=== PATIENT | male | born 1960 | race Caucasian/White ===

== ENCOUNTER → 2023-09-20 06:27 | Day surgery (SDC) | payer OTHER, SELFPAY ==
[2023-09-20 16:56] VITALS: BP 119/73
[2023-09-20 17:00] VITALS: BP 129/73
== END ==
LOC: GI 06:27
PROVIDERS: ATTENDING PHYSICIAN Specialist
DX: Z12.11 Encounter for screening for malignant neoplasm of colon (principal); K57.30 Diverticulosis of large intestine without perforation or abscess without bleeding; D12.3 Benign neoplasm of transverse colon; Z86.010 Personal history of colon polyps
CPT/HCPCS: 45385; 45380; 88305

== ENCOUNTER 2023-09-20 17:41 | Observation (INO) | payer OTHER, SELFPAY ==
[2023-09-20] VITALS (16 sets, daily range): BP systolic 76–144; BP diastolic 49–81; PULSE 101–119; BMI 23.0
--- NOTE | 2023-09-20 15:00 | ED.GENMED ---
History of Present Illness
General
Chief Complaint: Rectal Bleeding
Source: patient
Exam Limitations: none
Time Seen by Provider: 09/20/23 14:58
Nursing documentation reviewed up to this point in time: agreed with
Travel History
Have you had any contact with someone who has COVID-19?: No
Do you have any symptoms of coronavirus? Fever > 100 degrees, chills, cough, shortness of breath, sore throat, loss of taste or smell, muscle aches, or headache?: No
History of Present Illness
History of Present Illness:
pt is a 62 y/o M
h/o wilms tumor
hld
had colonosocopy this am [address] corea
had tolerated prep well
went home and ate and around 930 am had 1 episode rectal bleeding
then had 3 more episodes, larger volume
he isn't sure if he had clots
no thinners
takes baby asa but held for colonoscopy
had 2 polyps removed during colonoscopy
has no abdominal pain
syncopized in the waitinr room here
was hypotensive and pale for RN.
Review of Systems
Review of Systems
Allergies reviewed?: Yes
All Other Systems: Not applicable
Phy Exam
Physical Exam
Physical Exam:
GENERAL: Alert ,pale diaphoretic
EYE: pupils equal and reactive
NECK: Supple
ENT: o/p clr, mmm.
CARDIAC: Regular rate and rhythm .
LUNGS: Clear breath sounds bilaterally, no acute respiratory distress, no wheezes/rales/rhonchi
ABDOMEN: Soft, without focal tenderness, no r/g, no cvat, normal bowel sounds
rectal: no active bleeding; evidence of blood in underwear
NEUROLOGICAL: Alert and oriented, no focal neuro deficits
SKIN: Warm and dry, skin intact.
MUSCULOSKELETAL: No edema, well perfused. neg alden's sign
PSYCH: Normal and appropriate interaction.
Course
Orders/Labs/Results
Orders:
Orders
09/20/23 14:55
Electrocardiogram (*1) Urgent
Reason for Study: Syncope
EKG- Treatment ONCE
09/20/23 14:58
Cardiac Monitoring- Treatment ONCE
0.9% Sodium Chloride 1000 ml [Nss] 1,000 ml IV BOLUS
09/20/23 14:59
IV Insert/Care/Rem.- Treatment PRN
09/20/23 15:00
Type+Screen Urgent
Complete Blood Count/With Diff Urgent
Comprehensive Metabolic Panel Urgent
PTT Urgent
Prothrombin Time Urgent
Abnormal Lab Results
09/20/23
15:00
WBC 11.0 H 10^3/uL
(4.8-10.8)
RBC 4.45 L 10^6/uL
(4.70-6.10)
Hct 37.9 L %
(39.0-52.0)
MPV 10.5 H fL
(7.4-10.4)
Absolute Lymphs (auto) 3.9 H 10^3/uL
(1.2-3.4)
Absolute Monos (auto) 0.9 H 10^3/uL
(0.1-0.6)
Sodium 133 L mmol/L
(135-145)
Glucose 132 H mg/dl
(70-99)
09/20/23 15:00
09/20/23 15:00
Vital Signs
Initial and Last Documented VS:
Initial Vital Signs
Temp Pulse Resp
98.6 F 97 18
09/20/23 14:47 09/20/23 14:47 09/20/23 14:47
Last Documented Vital Signs
Temp Pulse Resp BP Pulse Ox
98.6 F 98 17 120/79 99
09/20/23 14:47 09/20/23 15:30 09/20/23 15:30 09/20/23 15:00 09/20/23 15:30
MDM/Problems Addressed
Differential Diagnosis Includes:
GI bleed, syncope, vasovagal
MDM/Problems Addressed:
62 y/o M with colonoscopy today
had polypectomy x 2
started bleeding at 930
x 3 episodes, larger volume the last 2
syncopized in traige x 2
pale, diaphoretic
nontender abdomen
no active bleeding
hg 13
spoke with GI who will take him for scope.
They request that we admit the patient to the hospitalist for monitoring overnight.
*Critical Care Note
Total Time (30-74mins, 75-104mins- exclusive of procedures): Not Applicable
ED Attending Note
-
Portions of this chart may have been created with voice recognition software.� Occasional wrong word or��sound alike� substitutions may have occurred due to the inherent limitations of voice recognition software.
Discharge Plan
Departure
Patient Disposition: Admit
Date of Disposition: 09/20/23
Time of Disposition: 15:45
Admit to: Med/Surg
Presentation/result/management discussed w/ accepting MD/DO: Hospitalist
Condition: Fair
Covid-19: Not Applicable
Discharge Problem:
GI bleed
Prescriptions:
No Action
aspirin 81 mg Tablet,Delayed Release (Dr/Ec)
81 mg PO DAILY
rosuvastatin [Crestor] 10 mg Tablet
10 mg PO QPM
Interventions
Interventions:
*Risk Screen - Suicide Last Done: 09/20/23 14:57
*General Assessment Last Done: 09/20/23 14:47
*Neglect/Abuse Screening Last Done: 09/20/23 14:57
ED- Fall Risk Assessment Last Done: 09/20/23 14:57
*ED COVID-19 Vaccine History Last Done: 09/20/23 14:47
OD-Wlsahs-Hfshxovqgb Assessment Last Done: 09/20/23 14:57
ED- Cardiac Assessment Last Done: 09/20/23 14:57
ED- Pulmonary Assessment Last Done: 09/20/23 14:57
[2023-09-20] MEDS: NSS 1000 IV ×2 (15:01→22:40)
[2023-09-20 15:16] LABS: % Eosinophils 3.4 % (0-6); % Immature Granulocytes 0.3 % (0-0.5); % Lymphocytes 35.5 % (20.5-51.1); % Monocytes 8.1 % (1.7-9.3); % Neutrophils 51.7 % (42.2-75.2); Absolute Basophils 0.1 10^3/uL (0-0.2); Absolute Eosinophils 0.4 10^3/uL (0-0.7); Absolute Lymphocytes 3.9 10^3/uL (1.2-3.4); Absolute Monocytes 0.9 10^3/uL (0.1-0.6); Absolute Neutrophils 5.7 10^3/uL (1.4-6.5); Hematocrit 37.9 % (39.0-52.0); Hemoglobin 13.3 g/dL (13.0-18.0); Mean Corp Hgb Conc. 35.1 g/dL (33.0-37.0); Mean Corpuscular Hgb 29.9 pg (27.0-31.0); Mean Corpuscular Volume 85.2 fL (80.0-94.0); Mean Platelet Volume 10.5 fL (7.4-10.4); Nucleated Red Blood Cells % 0 % (-); Platelet Count 283 10^3/uL (130-400); Red Blood Cell Count 4.45 10^6/uL (4.70-6.10)
[2023-09-20 15:28] LABS: INR 1.02; PT 13.4 Sec (11.4-14.6)
[2023-09-20 15:30] LABS: ALT (SGPT) 32 U/L (0-50); AST (SGOT) 33 U/L (17-59); Albumin 4.2 g/dl (3.5-5.0); Alkaline Phosphatase 58 U/L (38-126); Blood Urea Nitrogen 16 mg/dl (9-20); Carbon Dioxide 25 mmol/L (22-30); Chloride 99 mmol/L (98-107); Glucose 132 mg/dl (70-99); Sodium 133 mmol/L (135-145); Total Bilirubin 0.7 mg/dl (0.2-1.3); Total Protein 6.7 g/dl (6.3-8.2); eGFR > 60.00
--- NOTE | 2023-09-20 15:43 | CON.GI ---
Addendum entered and electronically signed by Cynthia Thompson MD 09/20/23 17:45:
I saw and examined the patient.
The INTEGRATION SOLUTION ARCHITECT's note was reviewed and I agree with the note.
Comment: This is a 62-year-old male who had colonoscopy today with Dr. Corea for prior history of colon polyps ( his prior colonoscopy was about 3 years ago in [place] prior to moving here). He was found to have a 10 mm hepatic flexure polyp that
was removed with a hot snare and 1 diminutive polyp in the proximal transverse colon which was removed with a jumbo cold forceps and sigmoid diverticulosis. He had his procedure around 7:30 AM and after he went home he ate breakfast around 9.30 and
subsequently had a large bloody bowel movement and had 4 more episodes came to the emergency room and in the triage area he had a syncopal episode with another episode of maroon stools. On arrival his hemoglobin is 13.3, he denies any abdominal
pain, no nausea vomiting or hematemesis. No fevers or chills. He denies any NSAID use, he takes 81 mg of aspirin just for prophylactic reasons.
Assessment and plan lower GI bleed most likely post polypectomy bleed will schedule him for urgent colonoscopy for hemostasis. He was dizzy earlier and had a syncopal episode his hemoglobin on admission was stable he is feeling better after
receiving IV fluids. Will continue to monitor serial H&H and BP and transfuse if hemoglobin drops less than 8. Hold aspirin for now.
Addendum entered and electronically signed by LARRY Thayer 09/20/23 16:43:
type and cross sent
transfuse<7
Original Note:
Consultation
-
Date/Time Consultation Requested: 09/20/23 1530
Date/Time Consultation Performed: 09/19/22 1545
Requesting Provider: Keshia Salazar PA-C
Performing Provider: LARRY Pedraza, Cynthia Thompson MD
Reason for Consultation: GI bleed
Medical History
Chief Complaint / HPI
Chief Complaint: GI bleed
History of Present Illness:
Pt is a 62yo with hx colon polyps, hypercholesterolemia, Wilm's tumor with nephrectomy at age 23, mild asthma, Schatzki's ring, gastric and duodenal polyps, hx colon polyps with routine follow up colonoscopy this am with one 10 mm polyp removed from
hepatic flexure and one diminutive polyp in transverse colon, and diverticulosis. After going home ate breakfast at 9-10 AM then noted large volume of red/burgundy stool x 4 episodes then presents to ER with syncope in waiting room and noted
dizziness. On arrival hbg 13.3, WBC 11,000, Na 133 and stable normal.
Pt admits to chronic stable GERD no medication but denies dysphagia, nausea, vomiting, abdominal pain, diarrhea, constipation or black stools. 07/2021 EGD with Schatzki's ring with dilation, gastric polyps, and duodenal polyps noeg metaplasia,
dysplasia, duodenitis. On ASA daily no other NSAID use.
Past Medical History
Past Medical History: Asthma, GERD (no current meds, diet controlled ), Hypercholesterolemia and Other (Wilm's tumor, colon polyps, gastric/duodenal polyps, schatzki's ring)
Past Surgical History: Other (right kidney removal at age 23)
Social History
Tobacco: Non-Smoker
Alcohol: Occasional (social )
Drug: None
Living: With Family
Employment: Employed
Family History
Family History: Other (no family hx colon CA and polyp)
Allergies / Home Medications
Allergy/AdvReac Type Severity Reaction Status Date / Time
No Known Allergies Allergy Unverified 09/20/23 14:55
Medication Instructions Recorded
aspirin 81 mg tablet,delayed 81 mg PO DAILY 09/20/23
release
rosuvastatin 10 mg tablet (Crestor) 10 mg PO QPM 09/20/23
Review of Systems
-
History Source: Patient
Constitutional: Reports Weight Loss
EENT: Reports No Symptoms
Respiratory: Reports No Symptoms
Cardiac: Reports Syncope
Abdomen/GI: Reports Bloody Stools
: Reports No Symptoms
Musculoskeletal: Reports No Symptoms
Skin: Reports No Symptoms
Neurological: Reports Dizzy
Endocrine: Reports No Symptoms
Hematologic/Lymphatic: Reports Bleeding
Vital Signs
Temp Pulse Resp BP Pulse Ox
98.6 F 98 17 120/79 99
09/20/23 14:47 09/20/23 15:30 09/20/23 15:30 09/20/23 15:00 09/20/23 15:30
Physical Exam
Exam
General: Well Developed, Well Nourished and No Apparent Distress
HEENT: Normocephalic and Anicteric
Respiratory: Clear
Cardiac: Regular Rhythm
GI: Soft, Non Tender and Non Distended
Musculoskeletal: No Clubbing and No Cyanosis
Skin: Warm and Dry
Neuro: Awake, Alert and AO x 3
Psych: Calm
Results
WBC 11.0 10^3/uL (4.8-10.8) H 09/20/23 15:00
Hgb 13.3 g/dL (13.0-18.0) 09/20/23 15:00
Hct 37.9 % (39.0-52.0) L 09/20/23 15:00
MCV 85.2 fL (80.0-94.0) 09/20/23 15:00
Plt Count 283 10^3/uL (130-400) 09/20/23 15:00
Absolute Neuts (auto) 5.7 10^3/uL (1.4-6.5) 09/20/23 15:00
PT 13.4 Sec (11.4-14.6) 09/20/23 15:00
INR 1.02 09/20/23 15:00
APTT 29.0 Sec (23.4-35.0) 09/20/23 15:00
Sodium 133 mmol/L (135-145) L 09/20/23 15:00
Potassium 4.0 mmol/L (3.5-5.1) 09/20/23 15:00
Chloride 99 mmol/L (98-107) 09/20/23 15:00
Carbon Dioxide 25 mmol/L (22-30) 09/20/23 15:00
BUN 16 mg/dl (9-20) 09/20/23 15:00
Creatinine 1.0 mg/dL (0.7-1.3) 09/20/23 15:00
Calcium 9.0 mg/dl (8.4-10.2) 09/20/23 15:00
Total Bilirubin 0.7 mg/dl (0.2-1.3) 09/20/23 15:00
AST 33 U/L (17-59) 09/20/23 15:00
ALT 32 U/L (0-50) 09/20/23 15:00
Alkaline Phosphatase 58 U/L (38-126) 09/20/23 15:00
Diagnostic Image Results:
Prior GI Procedures:
EGD: 07/2021 EGD [facility] with Schatzki's ring with dilation, gastric polyps, and duodenal polyps noeg metaplasia, dysplasis, duodenitis.
Colonoscopy: 09/20/23 [facility] one 10 mm polyp removed from hepatic flexure and one diminutive polyp in transverse colon, and diverticulosis.
Assessment / Plan
-
Pt is a 62yo with hx colon polyps, hypercholesterolemia, Wilm's tumor with nephrectomy at age 23, mild asthma, Schatzki's ring, gastric and duodenal polyps, hx colon polyps with routine follow up colonoscopy this am with one 10 mm polyp removed from
hepatic flexure and one diminutive polyp in transverse colon, and diverticulosis. After going home ate breakfast at 9-10 AM then noted large volume of red/burgundy stool x 4 episodes then presents to ER with syncope in waiting room and noted
dizziness. On arrival hbg 13.3, WBC 11,000, Na 133 and stable normal. On ASA daily no other NSAID use.
-post polypectomy bleeding
-syncope
-hx prior adenomatous colon polyps
-mild hyponatremia
other medical problems:
-GERD - stable no meds
-Wilm's tumor with prior nephrectomy
-asthma- stable PRN meds
-Schatzki's ring
-gastric and duodenal polyps
PLAN:
Etiology of bleeding with related to post polypectomy bleeding vs other
plan for colonoscopy today
trend hbg
NPO
will follow closely
-
-
Thank you for consultation and allowing me to participate in the patient's care. Please call the physician relations representative GI physician during the after hours with any questions or concerns.
--- NOTE | 2023-09-20 15:54 | PTCARENOTE ---
Patient had x2 syncopal episodes in the chair in triage. RN and PCT able to move patient over to stretcher. Patient brought right back to bed 8-- Martin GUADARRAMA at bedside.
--- NOTE | 2023-09-20 15:57 | HPS.HSE ---
Family Physician
-
Family Physician:
Chief Complaint
-
hematochezia
History of Present Illness
62M hx gastric duodenal colon polyps, HLD, Wilm's tumor nephrectomy at age 23, mild asthma, Schatzki's ring p/w hematochezia with associate syncope x2 after routine follow up colonoscopy in am with one 10 mm polyp removed from hepatic flexure and
one diminutive polyp in transverse colon.� Large volume red/burgundy stool x 4 episodes at home following procedure, presented to ER with syncope in waiting room associate dizziness. � Vital signs otherwise stable at rest, mild sinus tachycardia but
no hypotension. Labs unremarkable, mild leukocytosis likely stress reactive, no significant anemia noted. Patient was evaluated by GI and had repeat colonoscopy where clips were placed sites of recent polypectomy
Medical History
Past Medical History
Past Medical History: Reports Other (as above)
Past Surgical History: Reports Other (as above)
Social History
Tobacco: Non-smoker
Alcohol: Occasional
Drug: None
Personal:
Living: With Family
Family History
Family History: Not pertinent (reviewed)
Allergies / Home Medications
Allergies reflects when Allergies were last updated in [facility].
Home Medications with original date entered in [facility]
Allergy/Medication List:
Allergies
Allergy/AdvReac Type Severity Reaction Status Date / Time
No Known Allergies Allergy Unverified 09/20/23 14:55
Home Medications
aspirin 81 mg tablet,delayed release 81 mg PO DAILY Blood Clot Prevention/Tx 09/20/23
rosuvastatin 10 mg tablet (Crestor) 10 mg PO QPM High Cholesterol 09/20/23
Review of Systems
-
A 12 point ROS was completed and negative except as noted: Yes
Constitutional: Reports Other (as below)
Physical Exam
Vital Signs
Vital Signs
Temp Pulse Resp BP Pulse Ox
98.6 F 98 17 120/79 99
09/20/23 14:47 09/20/23 15:30 09/20/23 15:30 09/20/23 15:00 09/20/23 15:30
Physical Exam
General: Other (as below)
Laboratory Results
-
09/20/23 15:00
09/20/23 15:00
Laboratory Results
PT 13.4 Sec (11.4-14.6) 09/20/23 15:00
INR 1.02 09/20/23 15:00
APTT 29.0 Sec (23.4-35.0) 09/20/23 15:00
Total Bilirubin 0.7 mg/dl (0.2-1.3) 09/20/23 15:00
AST 33 U/L (17-59) 09/20/23 15:00
ALT 32 U/L (0-50) 09/20/23 15:00
Alkaline Phosphatase 58 U/L (38-126) 09/20/23 15:00
Impression/Plan
-
ROS
General: Denies fever chills night sweats unexpected weight loss
Neuro: Reported syncope Denies seizure shaking dizziness vertigo
Psych: denies depression hallucinations confusion manic episodes
Endocrine: Denies polyuria polydipsia polyphagia heat/cold intolerance
HEENT: Denies blindness visual disturbances epistaxis
Pulmonary: denies coughing hemoptysis sneezing sob dyspnea on exertion
Cardiovascular: denies chest pain palpitations leg swelling
Hematology: denies signs symptoms of anemia easy bruising/bleeding
Gastrointestinal:reported hematochezia
Genito-Urinary: denies retention incontinence dysuria
Musculoskeletal: denies joint pain weakness
Dermatology: denies rash laceration bruising
Physical Exam
General: No pallor, cyanosis, or jaundice.
HEENT: Throat clear. PERRLA Normocephalic atraumatic
NECK: Supple. No JVD Carotid Bruits
RESPIRATORY: Lungs clear to auscultation. No crackles wheezes stridor
CVS: S1, S2 normal. RRR. No murmur, rub or gallop.
ABDOMEN: Soft, non-tender. No distension. BS+/normal.
EXTREMITIES: No peripheral cyanosis or edema.
CRIMINAL INTELLIGENCE ANALYST: AOx3. No focal deficits.
IMPRESSION:
62M hx gastric duodenal colon polyps, HLD, Wilm's tumor nephrectomy at age 23, mild asthma, Schatzki's ring p/w hematochezia with associate syncope x2 after routine follow up colonoscopy in am with one 10 mm polyp removed from hepatic flexure and
one diminutive polyp in transverse colon.� Large volume red/burgundy stool x 4 episodes at home following procedure, presented to ER with syncope in waiting room associate dizziness. � Vital signs otherwise stable at rest, mild sinus tachycardia but
no hypotension. Labs unremarkable, mild leukocytosis likely stress reactive, no significant anemia noted. Patient was evaluated by GI and had repeat colonoscopy where clips were placed sites of recent polypectomy
PLAN:
#Syncope likely due to postpolypectomy bleed status post repeat colonoscopy with clipping
Obs telemetry
Monitor H&H
Transfusion goal Hgb > 8
Check orthostatic vitals in AM
diet as per GI
dvt ppx not indicated at this time, LOS anticipated <24h
I spent a total of 75 minutes with the patient or on the floor. More than 50% of this time involved counseling and coordination of care.
[2023-09-20 18:16] LABS: Hematocrit 32.2 % (39.0-52.0); Hemoglobin 11.1 g/dL (13.0-18.0)
--- NOTE | 2023-09-20 19:14 | SUR.PHASEI ---
tele bed available on 4th floor - report given - transported on monitor to 4th floor, no pain, awake, alert and oriented, nervous and very talkative, questions answered and reassured. Patient in contact with family by cell phone
[2023-09-21 03:43] VITALS: BP 116/79
--- NOTE | 2023-09-21 04:17 | PTCARENOTE ---
Addendum entered by José Nowak RN 09/21/23 04:18:
[employer] service attendant made aware of pt orthostatics 112/73 supine,standing 76/49, sitting-81/63,HR-110. Pt stated he felt dizzy when he stood to do ortho. VIDEO TAPE TRANSFERRER made aware,pt asymptomatic while in bed.Pt encouraged to call for help as needed. Pt started on IV
fluids as ordered NSS at 100ml/hr.No new orders from VIDEO TAPE TRANSFERRER. call quesada in reach.
Original Note:
Pt received from PACU AAOX3 able to make his needs made. Denies pain or any discomfort. Pt oriented to room & call quesada in reach. Plan of care continued.
[2023-09-21 06:52] LABS: % Basophils 0.8 % (0-2); % Eosinophils 2.1 % (0-6); % Immature Granulocytes 0.1 % (0-0.5); % Lymphocytes 23.7 % (20.5-51.1); % Monocytes 7.6 % (1.7-9.3); % Neutrophils 65.7 % (42.2-75.2); Absolute Basophils 0.1 10^3/uL (0-0.2); Absolute Eosinophils 0.2 10^3/uL (0-0.7); Absolute Lymphocytes 1.8 10^3/uL (1.2-3.4); Absolute Monocytes 0.6 10^3/uL (0.1-0.6); Hematocrit 30.8 % (39.0-52.0); Hemoglobin 10.7 g/dL (13.0-18.0); Mean Corp Hgb Conc. 34.7 g/dL (33.0-37.0); Mean Corpuscular Hgb 30.5 pg (27.0-31.0); Mean Corpuscular Volume 87.7 fL (80.0-94.0); Mean Platelet Volume 10.5 fL (7.4-10.4); Nucleated Red Blood Cells % 0 % (-); Platelet Count 189 10^3/uL (130-400); Red Blood Cell Count 3.51 10^6/uL (4.70-6.10); Red Cell Dist. Width 13.2 % (11.5-14.5); White Blood Cell Count 7.7 10^3/uL (4.8-10.8)
--- NOTE | 2023-09-21 07:14 | W.PN.HOSP.TC ---
Today's Communication/Plan
-
discharge
Assessment / Plan
Assessment / Plan
Physical Exam
General: No pallor, cyanosis, or jaundice.
HEENT: Throat clear. PERRLA Normocephalic atraumatic
NECK: Supple. No JVD Carotid Bruits
RESPIRATORY: Lungs clear to auscultation. No crackles wheezes stridor
CVS: S1, S2 normal. RRR.� No murmur, rub or gallop.
ABDOMEN: Soft, non-tender. No distension. BS+/normal.
EXTREMITIES: No peripheral cyanosis or edema.
NURSING HOME ASSISTANT: AOx3. No focal deficits.
IMPRESSION:
62M hx gastric duodenal colon polyps, HLD, Wilm's tumor nephrectomy at age 23, mild asthma, Schatzki's ring p/w hematochezia with associate syncope x2 after routine follow up colonoscopy in am with one 10 mm polyp removed from hepatic flexure and
one diminutive polyp in transverse colon.� Large volume red/burgundy stool x 4 episodes at home following procedure, presented to ER with syncope in waiting room associate dizziness. � Vital signs otherwise stable at rest, mild sinus tachycardia but
no hypotension.� Labs unremarkable, mild leukocytosis likely stress reactive, no significant anemia noted.� Patient was evaluated by GI and had repeat colonoscopy where clips were placed sites of recent polypectomy
PLAN:
#Syncope likely due to postpolypectomy bleed status post repeat colonoscopy with clipping
Obs telemetry
Monitor H&H, slight trend down, no significant bleeding noted, VSS
Significant orthostatic hypotension in morning, though asymptomatic, possibly d/t lingering anesthesia effects vs hypovolemia from GI bleed
Orthostatic Hypotension resolved with IVF resuscitation
Tolerating low residue diet
GI eval appreciated stable for discharge home
dvt ppx not indicated at this time, LOS anticipated <24h
Medically stable for discharge home with outpatient follow up recommendations.
Total Time Preparing Discharge ____45___ minutes including examination of the patient, summary of the hospital stay, instructions for continuing care to all relevant caregivers; and preparation of discharge records, prescriptions, and referral
forms if necessary.
Anticipated Discharge: Today
Subjective/Interval History
-
Date of Service: September 21, 2023
Seen and examined at bedside in no acute distress resting comfortably in bed. Patient had significant orthostatic hypotension earlier in the morning, asymptomatic. Denies lightheadedness. Has not had a bowel movement today but no further rectal
bleeding noted. Orthostatic hypotension resolved later in day with IVF resuscitation. Ambulating without issues. Eager to go home.
Objective Data
-
Labs:
Laboratory Results
09/21/23
06:32
WBC 7.7
Hgb 10.7 L
Hct 30.8 L
Plt Count 189 D
Sodium Pending
Potassium Pending
Chloride Pending
Carbon Dioxide Pending
BUN Pending
Creatinine Pending
Glucose Pending
Calcium Pending
Vital Signs:
Vital Signs
Temp Pulse Resp BP Pulse Ox
97.9 F 96 18 116/79 95
09/21/23 03:43 09/21/23 03:43 09/21/23 03:43 09/21/23 03:43 09/21/23 03:43
I&O
09/20/23 09/21/23 09/22/23
06:59 06:59 06:59
Intake Total 350 / 350
Output Total 1210 / 1210
Balance -860 / -860
[2023-09-21 07:18] LABS: Blood Urea Nitrogen 10 mg/dl (9-20); Calcium 8.2 mg/dl (8.4-10.2); Carbon Dioxide 22 mmol/L (22-30); Chloride 107 mmol/L (98-107); Estimated Creatinine Clearance 115 ml/min; Glucose 100 mg/dl (70-99); Potassium 4.3 mmol/L (3.5-5.1); Sodium 132 mmol/L (135-145); eGFR > 60.00
[2023-09-21] MEDS: NSS 500 IV (07:24)
[2023-09-21 07:35] VITALS: BP 115/75; BP 134/71; BP 137/74; PULSE 102; PULSE 118; PULSE 93
[2023-09-21] MEDS: NSS 1000 IV (08:12)
[2023-09-21 11:02] VITALS: BP 105/76; BP 109/70; BP 119/79; PULSE 111; PULSE 94; PULSE 99
[2023-09-21] MEDS: CALCIUM GLUCONATE 100 IV (11:10)
--- NOTE | 2023-09-21 12:00 | W.PN.GI.CBS2 ---
Addendum entered and electronically signed by David Forde MD 09/21/23 14:18:
I saw and examined the patient.
The PA's note was reviewed and I agree with the note.
Comment:
No bleeding o/n, Hgb drifted down to 10.7 but no clinical sign of bleeding. Agree with advancing diet, ok to d/c home, GI s/o.
Original Note:
Today's Communication / Plan
-
Etiology of bleeding with related to post polypectomy bleeding
s/p repeat colonoscopy 09/19 with bleeding at polyps sites with clip placed
hbg with slow drop 13.3 to 10.7
no stools overnight
reviewed first few stools may have blood
advance to low residue diet
ok for discharge if no further bleeding and no dizziness
advised to return for any recurrent bleeding or problems
report reviewed with patient
all questions answered
Assessment / Plan
-
Pt is a 62yo with hx colon polyps, hypercholesterolemia, Wilm's tumor with nephrectomy at age 23, mild asthma, Schatzki's ring, gastric and duodenal polyps, hx colon polyps with routine follow up colonoscopy this am with one 10 mm polyp removed from
hepatic flexure and one diminutive polyp in transverse colon, and diverticulosis� After going home ate breakfast at 9-10 AM then noted large volume of red/burgundy stool x 4 episodes then presents to ER with syncope in waiting room and noted
dizziness. � On arrival� hbg 13.3, WBC 11,000, Na 133 and stable normal. On ASA daily no other NSAID use.
3/7 colonoscopy [facility] with one 10 mm polyp removed from hepatic flexure and one diminutive polyp in transverse colon, and diverticulosis
3/7 colonoscopy [place]-� � - Diverticulosis in the sigmoid colon and in the descending colon.
�� � � � � � � � � � � - Blood in the entire examined colon� - A single (solitary) ulcer at the hepatic flexure site of recent polypectomy ( Hot snare polypectomy). 2
�� � � � � � � � � � � Clips were placed. Clip dust collector attendant: [employer]. Injected. No bleeding after intervention.
�� � � � � � � � � � � Erythematous mucosa with red spot was found in theproximal transverse colon at site of recent
�� � � � � � � � � � � polypectomy (jumbo forceps). Clip was placed. Clip
�� � � � � � � � � � � dust collector attendant: [employer].
�� � � � � � � � � � � - No specimens collected.
-post polypectomy bleeding
-syncope
-hx prior adenomatous colon polyps
-mild hyponatremia
other medical problems:
-GERD - stable no meds
-Wilm's tumor with prior nephrectomy
-asthma- stable PRN meds
-Schatzki's ring
-gastric and duodenal polyps
PLAN:
Etiology of bleeding with related to post polypectomy bleeding
s/p repeat colonoscopy 09/19 with bleeding at polyps sites with clip placed
hbg with slow drop 13.3 to 10.7
no stools overnight
reviewed first few stools may have blood
advance to low residue diet
ok for discharge if no further bleeding and no dizziness
advised to return for any recurrent bleeding or problems
report reviewed with patient
all questions answered
Subjective
Subjective
Date of Service: September 21, 2023
no further bleeding, feeling well advancing to low residue diet
Objective
Data Reviewed
Laboratory Data:
Laboratory Results
09/21/23 06:32
09/21/23 06:32
Laboratory Results
PT 13.4 Sec (11.4-14.6) 09/20/23 15:00
INR 1.02 09/20/23 15:00
APTT 29.0 Sec (23.4-35.0) 09/20/23 15:00
Total Bilirubin 0.7 mg/dl (0.2-1.3) 09/20/23 15:00
AST 33 U/L (17-59) 09/20/23 15:00
ALT 32 U/L (0-50) 09/20/23 15:00
Alkaline Phosphatase 58 U/L (38-126) 09/20/23 15:00
Vital Signs and I&O:
Vital Signs
Temp Pulse Resp BP Pulse Ox
98.0 F 94 18 119/79 96
09/21/23 11:02 09/21/23 11:02 09/21/23 11:02 09/21/23 11:02 09/21/23 11:02
I&O
09/20/23 09/21/23 09/22/23
06:59 06:59 06:59
Intake Total 350 / 350
Output Total 1210 / 1210
Balance -860 / -860
Physical Exam
Physical Exam
HEENT: Anicteric and Moist mucous membranes
Cardiology: Normal Sinus Rhythm
Pulmonary: Clear
GI: Soft, Non Distended and Non Tender
Extremities: No Edema
Neuro: Non Focal
[2023-09-21 15:16] VITALS: BP 128/83
--- NOTE | 2023-09-21 16:03 | CM ---
Alert awake oriented patient who lives with his spouse Rasta who lives in a 2 story home with 0 step to enter and bed and bathroom on first floor. He is independent in driving and in all activities of daily living.He was offered Vn he declined
need.Rasta can drive him home at ct. He is anxious for discharge.Observation letter explained . Pt did not sign letter. Letter on chart.
No VN hx / No SNF history
Pharmacy [facility]
PCP DR Jessica
PLAN Home Declined VN
--- NOTE | 2023-09-21 16:08 | W.DCSUMMARY ---
Discharge Summary
Discharge Data
Date of Admission: 09/20/23
Date of Discharge: 09/21/23
-
Pending Results: No
Hospital Course
62M hx gastric duodenal colon polyps, HLD, Wilm's tumor nephrectomy at age 23, mild asthma, Schatzki's ring p/w hematochezia with associate syncope x2 after routine follow up colonoscopy in am with one 10 mm polyp removed from hepatic flexure and
one diminutive polyp in transverse colon.� Large volume red/burgundy stool x 4 episodes at home following procedure, presented to ER with syncope in waiting room associate dizziness. � Vital signs otherwise stable at rest, mild sinus tachycardia but
no hypotension.� Labs unremarkable, mild leukocytosis likely stress reactive, no significant anemia noted.� Patient was evaluated by GI and had repeat colonoscopy where clips were placed sites of recent polypectomy. Syncope likely due to
postpolypectomy bleed status post repeat colonoscopy with clipping. Initially significant orthostatic hypotension was noted in morning, though asymptomatic, possibly d/t lingering anesthesia effects vs hypovolemia from GI bleed. Orthostatic
Hypotension resolved with IVF resuscitation. Tolerating low residue diet. GI evaluated and assessed stable for discharge home. Medically stable, patient was discharged home with outpatient follow up recommendations.
Discharge Plan
-
Patient Disposition: Home (Routine Discharge)
Discharge Diagnosis/Procedures: 09/19 colonoscopy with one 10 mm polyp removed from hepatic flexure and one diminutive polyp in transverse colon, and diverticulosis, polypectomy complicated with bleeding and associate syncope. Repeat colonoscopy
performed with clips placed at bleeding sites, Orthostatic Hypotension resolved, Mild Anemia, Mild Hypocalcemia
Condition: Good
Diet: Low Residue
Additional Diets: ok to advance diet as tolerated
Activity: As tolerated
Driving Restrictions: As prior to admission
Bathing Restrictions: None
Blood Work: please repeat cbc and BMP with primary care provider in 1 week of discharge.
Activity Restrictions/Additional Instructions:
Please follow up with primary care provider in 1 week of discharge and GI in 2-4 weeks of discharge.
Referrals:
Juan Pablo Gasca MD [Active] - in two to four weeks
UNKNOWN - PT NOT,INTERVIEWE [Family Provider] -
Prescriptions:
Continued
aspirin 81 mg Tablet,Delayed Release (Dr/Ec)
81 mg PO DAILY
rosuvastatin [Crestor] 10 mg Tablet
10 mg PO QPM
Discharge Orders:
Discharge Patient (As Directed); Ordered 09/21/23
Ordered By: Seun Monge
Discharge Date and Time
Discharge Date/Time: 09/21/23 18:04
== END 2023-09-21 18:04 | disposition home or self-care (01) ==
LOC: 4 EAST ACU 17:41
PROVIDERS: Physician Assistant; ADMITTING PHYSICIAN Internal Medicine; EMERGENCY PHYSICIAN Emergency Medicine; OTHER PHYSICIAN Internal Medicine Gastroenterology
DX: K91.840 Postprocedural hemorrhage of a digestive system organ or structure following a digestive system procedure (principal); K63.3 Ulcer of intestine; K57.30 Diverticulosis of large intestine without perforation or abscess without bleeding; K63.89 Other specified diseases of intestine; D64.9 Anemia, unspecified; E83.51 Hypocalcemia; Y84.8 Other medical procedures as the cause of abnormal reaction of the patient, or of later complication, without mention of misadventure at the time of the procedure; I95.1 Orthostatic hypotension; R55 Syncope and collapse; E78.00 Pure hypercholesterolemia, unspecified; J45.909 Unspecified asthma, uncomplicated; K21.9 Gastro-esophageal reflux disease without esophagitis; E87.1 Hypo-osmolality and hyponatremia; Z79.82 Long term (current) use of aspirin; Z79.899 Other long term (current) drug therapy; Z85.528 Personal history of other malignant neoplasm of kidney; Z86.010 Personal history of colon polyps; Z87.19 Personal history of other diseases of the digestive system; Z90.5 Acquired absence of kidney
CPT/HCPCS: 45382; 80048; 80053; 85014; 85018; 85025; 85610; 85730; 86850; 86900; 86901; 93005; 96360; 99285; G0378

== ENCOUNTER 2024-02-28 23:21 | Observation (INO) | payer OTHER, SELFPAY ==
[2024-02-28 21:27] VITALS: BP 133/86; BMI 23.4
[2024-02-28 21:32] VITALS: BP 133/86
[2024-02-28 21:43] LABS: % Eosinophils 2.7 % (0-6); % Immature Granulocytes 0.2 % (0-0.5); % Lymphocytes 38.3 % (20.5-51.1); % Monocytes 7.2 % (1.7-9.3); % Neutrophils 50.6 % (42.2-75.2); Absolute Basophils 0.1 10^3/uL (0-0.2); Absolute Eosinophils 0.3 10^3/uL (0-0.7); Absolute Lymphocytes 3.6 10^3/uL (1.2-3.4); Absolute Monocytes 0.7 10^3/uL (0.1-0.6); Absolute Neutrophils 4.8 10^3/uL (1.4-6.5); Hematocrit 39.2 % (39.0-52.0); Hemoglobin 13.3 g/dL (13.0-18.0); Mean Corp Hgb Conc. 33.9 g/dL (33.0-37.0); Mean Corpuscular Hgb 29.4 pg (27.0-31.0); Mean Corpuscular Volume 86.7 fL (80.0-94.0); Nucleated Red Blood Cells % 0 % (-); Platelet Count 245 10^3/uL (130-400); Red Blood Cell Count 4.52 10^6/uL (4.70-6.10); Red Cell Dist. Width 14.6 % (11.5-14.5); White Blood Cell Count 9.4 10^3/uL (4.8-10.8)
[2024-02-28 21:57] VITALS: BP 133/77; BP 138/77; BP 138/79; PULSE 90; PULSE 93; PULSE 97
[2024-02-28 22:00] VITALS: BP 138/76
[2024-02-28 22:02] LABS: ALT (SGPT) 31 U/L (0-50); AST (SGOT) 40 U/L (17-59); Albumin 4.4 g/dl (3.5-5.0); Alkaline Phosphatase 56 U/L (38-126); Blood Urea Nitrogen 18 mg/dl (9-20); Calcium 8.9 mg/dl (8.4-10.2); Carbon Dioxide 29 mmol/L (22-30); Chloride 94 mmol/L (98-107); Estimated Creatinine Clearance 83 ml/min; Glucose 165 mg/dl (70-99); Potassium 4.2 mmol/L (3.5-5.1); Sodium 130 mmol/L (135-145); Total Bilirubin 0.7 mg/dl (0.2-1.3); Total Protein 6.7 g/dl (6.3-8.2); eGFR > 60.00
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
[2024-02-28 22:06] LABS: Troponin I 0.019 ng/ml
[2024-02-28 23:00] VITALS: BP 136/80
--- NOTE | 2024-02-28 23:34 | HPS.HSE ---
Family Physician
-
Family Physician: NOT KNOW UNKNOWN - PT DOES
Chief Complaint
-
syncope
History of Present Illness
63-year-old male past medical history of hyperlipidemia, Wilms tumor status post nephrectomy, mild asthma, Schatzki's ring presenting with multiple syncopal episodes while at dinner tonight. He was sitting across the table eating dinner when he
started to feel lightheaded. His friend who he was eating dinner with states that immediately after he lost consciousness and proceeded to fall to the left. Patient denies any preceding chest pain, shortness of breath or dizziness. He did strike
the left side of his head patient's friend states that it was not a hard impact as the chair somewhat caught the fall. Patient quickly regained consciousness and did have 2 additional syncopal episode immediately following. He then was able to sit
up in a chapin at the restaurant and felt better. 911 was called and patient transferred to the emergency room.
He was able to walk to the ambulance without any difficulty. Patient is asymptomatic at this time. Denies any headache, neck pain, back pain. He denies any chest pain, shortness of breath, dizziness or visual changes. He denies any nausea
vomiting or abdominal pain. Patient walks his dog daily and denies any recent exertional chest pain or shortness of breath.
Patient did start Lexapro 3 days ago.
Father at age 69 from heart attack.
He drinks 1-2 drinks of wine occasionally. Denies smoking or any drugs.
Medical History
Past Medical History
Past Medical History: Reports Other (hyperlipidemia, Wilms tumor status post nephrectomy, mild asthma, Schatzki's ring )
Past Surgical History: Reports None
Social History
Tobacco: Non-smoker
Alcohol: Occasional
Drug: None
Family History
Family History: Not pertinent
Allergies / Home Medications
Allergies reflects when Allergies were last updated in [employer].
Home Medications with original date entered in [employer]
Allergy/Medication List:
Allergies
Allergy/AdvReac Type Severity Reaction Status Date / Time
No Known Allergies Allergy Unverified 09/20/23 14:55
Home Medications
aspirin 81 mg tablet,delayed release 81 mg PO DAILY Blood Clot Prevention/Tx 09/20/23
rosuvastatin 10 mg tablet (Crestor) 10 mg PO QPM High Cholesterol 09/20/23
Review of Systems
-
History Source: Patient
A 12 point ROS was completed and negative except as noted: Yes
Constitutional: Reports See HPI
EENT: Reports No Symptoms
Respiratory: Reports No Symptoms
Cardiac: Reports No Symptoms
Abdomen/GI: Reports No Symptoms
: Reports No Symptoms
Musculoskeletal: Reports No Symptoms
Skin: Reports No Symptoms
Neurological: Reports No Symptoms
Endocrine: Reports No Symptoms
Hematologic/Lymphatic: Reports No Symptoms
Psych: Reports No Symptoms
Physical Exam
Vital Signs
Vital Signs
Temp Pulse Resp BP Pulse Ox
98.1 F 87 20 136/80 98
02/28/24 21:27 02/28/24 23:15 02/28/24 23:00 02/28/24 23:00 02/28/24 21:27
Physical Exam
General: Well Developed, Well Nourished and No Apparent Distress
HEENT: NormoCephalic, Moist mucous membranes and Atraumatic
Respiratory: Clear
Cardiac: S1/S2 and Regular Rhythm; No Murmur or Rub
GI: Soft, Non Tender, Non Distended and Normal Bowel Sounds; No Organomegaly
Rectal: Deferred by Provider
Musculoskeletal: No Clubbing, No Cyanosis and No Edema
Skin: No Rash
Neuro: Nonfocal/grossly intact
Laboratory Results
-
02/28/24 21:32
02/28/24 21:32
Laboratory Results
Total Bilirubin 0.7 mg/dl (0.2-1.3) 02/28/24 21:32
AST 40 U/L (17-59) 02/28/24 21:32
ALT 31 U/L (0-50) 02/28/24 21:32
Alkaline Phosphatase 56 U/L (38-126) 02/28/24 21:32
Troponin I 0.019 ng/ml 02/28/24 21:32
Data Reviewed
-
Lab Data: Labs Reviewed by me
Old Records: Reviewed
Impression/Plan
-
IMPRESSION:
PLAN:
# Multiple syncopal episodes concerning for arrhythmia
-EKG shows normal sinus rhythm
-Orthostatics negative
-Telemetry monitoring
-Troponin of 0.09, continue to trend
-Check echo
-Check CT head due to head injury
-continue prophylactic aspirin
-Cardiology consulted
Hyperlipidemia
-Continue statin
Wilms tumor status post right nephrectomy
Mild asthma
Schatzki's ring
Anxiety/Depression
-continue SSRI
Full code
DVT prophylaxis�SCDs
Regular diet
[2024-02-29] VITALS (7 sets, daily range): BP systolic 115–151; BP diastolic 76–94; PULSE 87–105; O2SAT 96; BMI 23.8
[2024-02-29 00:33] LABS: TSH Reflex To Free T4 4.03 uIU/ml (0.47-4.68)
[2024-02-29 07:38] LABS: % Basophils 0.7 % (0-2); % Eosinophils 0.7 % (0-6); % Immature Granulocytes 0.2 % (0-0.5); % Lymphocytes 17.7 % (20.5-51.1); % Monocytes 6.9 % (1.7-9.3); % Neutrophils 73.8 % (42.2-75.2); Absolute Basophils 0.1 10^3/uL (0-0.2); Absolute Eosinophils 0.1 10^3/uL (0-0.7); Absolute Lymphocytes 1.5 10^3/uL (1.2-3.4); Absolute Monocytes 0.6 10^3/uL (0.1-0.6); Absolute Neutrophils 6.4 10^3/uL (1.4-6.5); Hematocrit 38.6 % (39.0-52.0); Hemoglobin 13.4 g/dL (13.0-18.0); Mean Corp Hgb Conc. 34.7 g/dL (33.0-37.0); Mean Corpuscular Hgb 28.9 pg (27.0-31.0); Mean Corpuscular Volume 83.4 fL (80.0-94.0); Mean Platelet Volume 10.5 fL (7.4-10.4); Nucleated Red Blood Cells % 0 % (-); Platelet Count 219 10^3/uL (130-400); Red Blood Cell Count 4.63 10^6/uL (4.70-6.10); Red Cell Dist. Width 14.9 % (11.5-14.5); White Blood Cell Count 8.7 10^3/uL (4.8-10.8)
[2024-02-29 08:00] LABS: Troponin I < 0.012 ng/ml
[2024-02-29] MEDS: ASPIR LOW (ENTERIC COATED) 81 MG PO (08:00)
[2024-02-29 08:09] LABS: ALT (SGPT) 33 U/L (0-50); AST (SGOT) 37 U/L (17-59); Albumin 4.6 g/dl (3.5-5.0); Alkaline Phosphatase 68 U/L (38-126); Blood Urea Nitrogen 13 mg/dl (9-20); Calcium 9.4 mg/dl (8.4-10.2); Carbon Dioxide 25 mmol/L (22-30); Chloride 101 mmol/L (98-107); Estimated Creatinine Clearance 102 ml/min; Glucose 115 mg/dl (70-99); Potassium 4.5 mmol/L (3.5-5.1); Sodium 135 mmol/L (135-145); Total Bilirubin 0.7 mg/dl (0.2-1.3); Total Protein 7.1 g/dl (6.3-8.2); eGFR > 60.00
--- NOTE | 2024-02-29 08:18 | CON.CAR ---
Addendum entered and electronically signed by Dontae Kamara MD 02/29/24 16:17:
Attending addendum: Patient seen and examined. PA note reviewed and findings independently confirmed by me. Briefly, this is a 64-year-old gentleman with a past medical history notable for anxiety/depression, asthma, hyperlipidemia, and right
nephrectomy secondary to a Wilms tumor many years ago. He presented to [facility] after an unexplained syncopal episode while out to dinner. The patient reports that he had been feeling well earlier in the day. He had talked to his
sister which is always anxiety provoking. While eating dinner he suddenly began feeling lightheaded then experienced a loss of consciousness falling over and hitting his head. He was apparently helped to a chapin and experienced additional episodes
of syncope. 911 was called. The patient reports no prodrome and no memory of the episodes. He denies any postictal state and reports that he was immediately awake alert after the episode. There was no confusion. He had been sitting the entire
time and had not change position. He denies any palpitations before or after the episode.
Family history: Mother 5 in her late 80s. His father of a heart attack in his late 60s. He has 2 younger sisters who are alive and without cardiac issues. He states that there is no extended family history of sudden in aunts, uncles,
or cousins.
Social history: Patient reports that he has been under a significant amount of stress. His sister is getting evicted from her home and is the primary remote coders for their dependent mother. He denies any tobacco history. Social alcohol use
Allergies: None
-02/29/2024: Echo: LV: Mild concentric LVH. EF 58%. No WMA. RV: Normal, LA: Normal, RA: Normal, MV: Mild MR, AV: No AI or AAS, TV: Mild TR with estimated PAP 20-25 mmHg
-03/09/2024: EKG: Sinus rhythm with no acute ST-T changes
-Blood work: Troponin undetectable less than 0.012 x 2, BUN/creatinine 13/0.9, H/H: 13.4/38.6, Plts: 219, AST/ALT: 37/33,
PE:
GEN: AAO x 3. No acute distress
HEENT: NC/AT, sclera are anicteric, hearing and nares are normal.
NECK: Supple. Normal JVP
LUNGS: Clear to bases bilaterally. No wheezing
CV: Regular rate and rhythm. Normal S1/S2. Murmur: None
ABD : Soft, NT, Bowel sounds are present. No hepatosplenomegaly
EXT: No CCE. Good distal pulses
NEURO: No focal neurologic deficits
IMPRESSION
-Unexplained syncope with no prodrome
RECOMMENDATION
-Continue aspirin
-Will place RhythmStar monitor for continuous monitoring x 2 weeks
-Will schedule outpatient ischemic evaluation with stress study in 2 weeks after monitor removed. My suspicion for ischemic etiology is low as he experienced no anginal symptoms and the event happened while at rest with no exertional component.
-He will be scheduled for followup in our office
-I was absolutely clear on multiple occasions that the patient CAN NOT DRIVE until etiology of event has been evaluated. I was clear with patient and Dr. Bob stated he will make these instructions clear on his discharge sheet
-Discontinue Levitra and /or Lexapro
-Further management will in part be based upon the result of these studies
Original Note:
Consultation
Consultation Request
Date/Time Consultation Requested: 02/29/2024
Date/Time Consultation Performed: 02/29/2024
Requesting Provider: Dr. Bob
Performing Provider: Dr. Kamara
Reason for Consultation: Syncope
Medical History
-
History of Present Illness:
HPI: Stiven is a 63-year-old male with past medical history of Wilms tumor status post right nephrectomy, hyperlipidemia, asthma, anxiety, and Schatzki's ring. He presents to ER for evaluation of multiple episodes of syncope yesterday while out
to dinner. While eating dinner, he suddenly began to feel lightheaded. He then lost consciousness and fell over, hitting his head. He was apparently helped up and into a chapin at the restaurant when he again had 2 additional episodes of syncope
which were witnessed. 911 was called and he was transferred to the emergency room for further evaluation. Upon arrival, workup has been unremarkable with negative troponins x 2. His TSH is stable at 4.03. Electrolytes within normal limits. Head
CT negative for any acute intracranial abnormality. EKG reviewed and showed sinus rhythm with heart rate 95 bpm. No arrhythmias noted on telemetry. He reports he is feeling with this morning and is hopeful for discharge. He has had no recurrent
symptoms. He denies any prior history of syncope or lightheadedness. His blood pressures are stable and his orthostatic vital signs were negative.
PMH:
Wilms tumor s/p R nephrectomy
HLD
Asthma
Anxiety
Schatzki's ring
Past Medical History
Past Medical History: Other (In HPI)
Social History
Tobacco: Non-Smoker
Alcohol: Occasional
Drug: None
Personal:
Living: With Family
Employment: Employed
Family History
Family History: Reviewed & Not Pertinent
Allergies / Home Medications
Allergy/AdvReac Type Severity Reaction Status Date / Time
No Known Allergies Allergy Unverified 09/20/23 14:55
�Medication �Instructions �Recorded �Confirmed �Type
aspirin 81 mg tablet,delayed 81 mg PO DAILY Blood Clot 09/20/23 02/28/24 History
release Prevention/Tx
rosuvastatin 10 mg tablet (Crestor) 10 mg PO DAILY High Cholesterol 09/20/23 02/28/24 History
Review of Systems
-
History Source: Patient
All other systems: Negative unless noted
Physical Exam
Vital Signs
Temp Pulse Resp BP Pulse Ox
98.1 F 90 18 147/84 95
02/29/24 07:56 02/29/24 07:56 02/29/24 07:56 02/29/24 07:56 02/29/24 07:56
Lab Results
02/29/24 07:22
02/29/24 07:22
Troponin I < 0.012 ng/ml 02/29/24 07:22
Physical Exam
General: Well Developed, Well Nourished and No Apparent Distress
HEENT: Normocephalic, Anicteric and Moist Mucous Membranes
Respiratory: Clear and Non Labored Respirations
Cardiac: S1/S2 and Regular Rhythm
Musculoskeletal: No Clubbing, No Cyanosis and No Edema
Skin: Warm and Dry
Neuro: AO x 3 and Nonfocal/Grossly Intact
Psych: Calm
Impression / Plan
-
PCP: Dr. Swartz
Gear Design Engineer: None prior to arrival
Impression:
Presented with syncope
Wilms tumor s/p R nephrectomy
HLD
Asthma
Anxiety
Schatzki's ring
Echo 02/29/2024: EF 58%, aortic sclerosis without stenosis
Plan:
-Presented after having multiple episodes of syncope while out to dinner. Did feel lightheaded prior to episode, however came on suddenly.
-Denies any prior history of lightheadedness or syncope/near syncope.
-No arrhythmias noted on telemetry overnight. EKG reviewed. Sinus rhythm with heart rate 95 bpm.
-Discussed outpatient monitoring. Patient is hesitant, however is agreeable to 2 week rhythm star monitor. Will apply at discharge.
-Echo with preserved EF and no significant valvular disease.
-TSH within normal limits. Electrolytes stable.
-Troponin negative x 2. Denies any chest pain or shortness of breath.
-Orthostatic vital signs negative.
-CT of head negative for any acute intracranial abnormality.
-Arranging for OP stress testing.
-Continue aspirin 81 mg daily and Crestor 10 mg daily.
HPI: Stiven is a 63-year-old male with past medical history of Wilms tumor status post right nephrectomy, hyperlipidemia, asthma, anxiety, and Schatzki's ring. He presents to ER for evaluation of multiple episodes of syncope yesterday while out
to dinner. While eating dinner, he suddenly began to feel lightheaded. He then lost consciousness and fell over, hitting his head. He was apparently helped up and into a chapin at the restaurant when he again had 2 additional episodes of syncope
which were witnessed. 911 was called and he was transferred to the emergency room for further evaluation. Upon arrival, workup has been unremarkable with negative troponins x 2. His TSH is stable at 4.03. Electrolytes within normal limits. Head
CT negative for any acute intracranial abnormality. EKG reviewed and showed sinus rhythm with heart rate 95 bpm. No arrhythmias noted on telemetry. He reports he is feeling with this morning and is hopeful for discharge. He has had no recurrent
symptoms. He denies any prior history of syncope or lightheadedness. His blood pressures are stable and his orthostatic vital signs were negative.
Data Reviewed
-
EKG: Tracing Personally Visualized and interpreted
CT Scan: Report Reviewed by me
Labs: Labs Reviewed by me
Old Records: Reviewed
[2024-02-29 08:59] LABS: Hepatitis C Antibody Negative (Negative)
--- NOTE | 2024-02-29 09:06 | W.PN.HOSP.TC ---
Today's Communication/Plan
-
see outlined plan
if Echo ok, and no further IP testing planned, then DC to home pending cardiac recs/clearance.
Assessment / Plan
Assessment / Plan
Assessment:
Multiple syncopal episodes concerning for arrhythmia/cardiac etiology
- no historical features of seizure or vagal etiology. no prior issues with glycemia.
- EKG NSR
- Tele no events
- Echo pending
- May need OP cardiac monitoring
- stress echo 18 months ago was normal
- await [facility] cards eval
Head trauma with syncope
- CT head negative, neuro exam non-focal
Hyperlipidemia
- continue statin
Wilms tumor status post right nephrectomy
Mild asthma
Schatzki's ring
Hyponatremia
- resolved
Anxiety/Depression
- hold Lexapro - he plans to stop it.
DVT ppx: SCDs
Code: Full
Anticipated Discharge: Within 24 hours
Subjective/Interval History
-
Date of Service: February 29, 2024
no complaints at present
in NSR on tele
Objective Data
-
Labs:
Laboratory Results
02/28/24 02/29/24
21:32 07:22
WBC 9.4 8.7
Hgb 13.3 13.4
Hct 39.2 38.6 L
Plt Count 245 219
Sodium 130 L 135
Potassium 4.2 4.5
Chloride 94 L 101
Carbon Dioxide 29 25
BUN 18 13
Creatinine 1.1 0.9
Glucose 165 H 115 H
Calcium 8.9 9.4
Total Bilirubin 0.7 0.7
AST 40 37
ALT 31 33
Alkaline Phosphatase 56 68
Vital Signs:
Vital Signs
Temp Pulse Resp BP Pulse Ox
98.1 F 90 18 147/84 95
02/29/24 07:56 02/29/24 07:56 02/29/24 07:56 02/29/24 07:56 02/29/24 07:56
I&O
02/28/24 02/29/24 03/01/24
06:59 06:59 06:59
Intake Total 0 / 0
Balance 0 / 0
Physical Exam
-
General: No Apparent Distress
HEENT: Normocephalic and Atraumatic
Respiratory: Negative Wheezes or Rales
Cardiac: Regular Rhythm and S1/S2
GI: Soft and Nontender
Genito-urinary: No Costovertebral Tender
Musculoskeletal: No Edema
Neuro: AO x 3
Hematologic / Lymphatic: No Lymphadenopathy
Psych: Calm
Data Reviewed
-
Total Time Spent with Patient (in minutes): 44
Labs: Labs Reviewed by me
--- NOTE | 2024-02-29 09:56 | CM ---
AYSE met with Stiven at bedside to complete IA. He is AAOx3, lives with his spouse Rasta in a 2 story home with no entry steps. Bedroom and bathroom on first floor. He is independent in driving and in all activities of daily living.
No VN hx / No SNF history
Pharmacy [facility]
PCP DR Jessica
PLAN: Discharge to home with no needs.
[2024-02-29 13:41] LABS: Troponin I < 0.012 ng/ml
--- NOTE | 2024-02-29 13:54 | VATNOTE ---
Client has 18 gauge left antecubital fossa IV site that was placed pre hospital. Refused routine restart as he states that he anticipates to be discharged today. Primary care RN concurs. Client agreeable to having IV site changed if discharge does
not occur today.
--- NOTE | 2024-02-29 15:01 | W.DS.TRANS ---
DC Summary - Data Miner
-
Discharge Instructions:
Discharge Diagnosis/Procedures Syncope
Diet Regular
Activity As tolerated
Bathing Restrictions None
Instructions:
Stand-Alone Forms:
Changes to Home Medications: No
Discharge Medications:
DC Medications w/original date entered in [facility]
aspirin 81 mg tablet,delayed release 81 mg PO DAILY Blood Clot Prevention/Tx 09/20/23
rosuvastatin 10 mg tablet (Crestor) 10 mg PO DAILY High Cholesterol 09/20/23
Home Medication Changes
Pending Results: No
Total time spent discharging patient (in min): 42
[2024-03-01 09:15] LABS: Glycohemoglobin (HgbA1c) 5.8 % (4.0-5.6)
== END 2024-02-29 17:34 | disposition home or self-care (01) ==
LOC: 4 EAST ACU 23:21
PROVIDERS: Clinical Nurse Specialist Family Health; ADMITTING PHYSICIAN Hospitalist; ATTENDING PHYSICIAN Internal Medicine; EMERGENCY PHYSICIAN Emergency Medicine; OTHER PHYSICIAN Internal Medicine Interventional Cardiology
DX: R55 Syncope and collapse (principal); R42 Dizziness and giddiness; E87.1 Hypo-osmolality and hyponatremia; S06.9X1A Unspecified intracranial injury with loss of consciousness of 30 minutes or less, initial encounter; J45.909 Unspecified asthma, uncomplicated; K22.2 Esophageal obstruction; E78.49 Other hyperlipidemia; F41.9 Anxiety disorder, unspecified; F32.A Depression, unspecified; I51.7 Cardiomegaly; I70.0 Atherosclerosis of aorta; W07.XXXA Fall from chair, initial encounter; Y93.89 Activity, other specified; Y92.511 Restaurant or cafe as the place of occurrence of the external cause; Z85.528 Personal history of other malignant neoplasm of kidney; Z90.5 Acquired absence of kidney; Z79.82 Long term (current) use of aspirin; Z82.49 Family history of ischemic heart disease and other diseases of the circulatory system; Z63.79 Other stressful life events affecting family and household
CPT/HCPCS: 70450; 80053; 83036; 84443; 84484; 85025; 86803; 93005; 93306; 97162; 97165; 99285; G0378

== ENCOUNTER → 2024-03-04 08:22 | Outpatient (REF) | payer OTHER, SELFPAY | LOC: RCS 08:22 | PROVIDERS: ATTENDING PHYSICIAN Internal Medicine Interventional Cardiology; FAMILY PHYSICIAN Internal Medicine | DX: R55 Syncope and collapse (principal); E78.2 Mixed hyperlipidemia | CPT/HCPCS: 93017; 93350 ==

== ENCOUNTER 2024-05-07 07:09 | Day surgery (SDC) | payer OTHER, SELFPAY ==
--- NOTE | 2024-05-07 10:53 | ITS.CL.IMPLP ---
[employer] - Implant Loop
Implant Loop
Procedure Report:
Date of Procedure: May 07, 2024
Primary Care Provider: Dr. Clem Swartz
Primary membership assistant: Dr Dontae Kamara
Procedure: Insertable Loop Recorder Implantation
Indication:
Syncope
Procedure:
The patient was brought to the procedure area in a fasting state. The anterior chest was prepped and draped in standard sterile fashion. The fourth intercostal space along the left sternal border was identified and this area was anesthetized with 10
mL of 1% lidocaine. After gathering the skin in this area, a small punch incision was made at approx intercostal space 4-5 at left costo-sternal junction using the provided scalpel/punch tool. The loop recorder was loaded into the tunneling device.
A tunnel was created in the subcutaneous tissue at a 45� angle along the coronal plane away from the sternum and towards the left flank. The tunneling device was inverted and the plunger was depressed, inserting the loop recorder into the
subcutaneous space. The tunneling device was removed. Manual pressure provide hemostasis. Adequate signal was confirmed. The skin was closed with steri-strips. The estimated blood loss was < 1 cc. A clean dressing was placed over the wound.
There were no complications.
Implant:
[employer] Reveal [id number]
Conclusion: Uncomplicated implantation of loop recorder.
Recommendation: Routine ILR care.
Copy:
Dr. Clem Swartz
Dr Dontae Kamara
== END 2024-05-07 08:47 | disposition home or self-care (01) ==
LOC: CATH 07:09
PROVIDERS: ATTENDING PHYSICIAN Internal Medicine Cardiovascular Disease; FAMILY PHYSICIAN Internal Medicine; OTHER PHYSICIAN Internal Medicine Interventional Cardiology
DX: Z09 Encounter for follow-up examination after completed treatment for conditions other than malignant neoplasm (principal); R55 Syncope and collapse; E78.5 Hyperlipidemia, unspecified; Z82.49 Family history of ischemic heart disease and other diseases of the circulatory system; Z79.82 Long term (current) use of aspirin
CPT/HCPCS: 33285; C1764